=== PATIENT | female | born 1995 ===

== ENCOUNTER → 2020-05-18 | Outpatient (CLI) | payer OTHER ==
--- NOTE | 2020-05-18 15:33 | Diagnostic Imaging Report ---
INDICATION: Fall. Pain. COMPARISON: None. FINDINGS: Two views of the left shoulder were obtained. There is no fracture, dislocation, or other acute bony abnormality identified. The soft tissues appear unremarkable. No radiopaque foreign bodies identified. The visualized portions of the left lung are clear. IMPRESSION: No acute fractures or dislocations of the left shoulder. Dictated by: Dictated on workstation # [id number]
--- NOTE | 2020-05-18 16:37 | Diagnostic Imaging Report ---
INDICATION: Fall. Two views of the left shoulder were obtained. FINDINGS: There appears to be a nondisplaced left scapular fracture. Clavicle and proximal humerus are intact. The AC joint and glenohumeral joint are unremarkable. Left lung is clear. Soft tissues are unremarkable. IMPRESSION: Mildly comminuted nondisplaced fracture of the body of the left scapula. Dictated by: Dictated on workstation # [id number]
== END ==
LOC: RAD 14:50
PROVIDERS: ATTEND Nurse Practitioner Primary Care
DX: S49.92XA Unspecified injury of left shoulder and upper arm, initial encounter (principal); W10.9XXA Fall (on) (from) unspecified stairs and steps, initial encounter
CPT/HCPCS: 73010; 73030